=== PATIENT | female | born 1985 | race African-American/Black ===

== ENCOUNTER 2020-01-09 22:13 | Emergency (ER) | payer OTHER ==
[~2020-01-09] VITALS: Ht 157.5 cm; Wt 88.5 kg
[~2020-01-09 22:13] MED LIST: AUGMENTIN 875875 M1 PO; BACTRIM DS TAB1 EACH PO; CIPRO; CORTISPORIN OTI10 M2 OT; DARVOCET-N 1001 EACH PO; DOXYCYCLINE 10100 MG PO; FLAGYL500 MG PO; FLEXERIL PO; LOPRESSOR25 PO; NOHOMEMEDICATIONS; NORCO 5-325 TA1 EACH PO; VICODIN 5-5001 EACH PO; VISTARIL 25 MG25 M1 PO
[2020-01-09] MEDS ORDERED: DOXYCYCLINE 10100 M2 PO (22:21)
[2020-01-09 23:38] VITALS: BP 125/79
== END 2020-01-09 23:42 | disposition home or self-care (01) ==
LOC: ER 22:13
DX: H61.21 Impacted cerumen, right ear (principal); I10 Essential (primary) hypertension